=== PATIENT | female | born 1960 | race Hispanic/Latino ===

== ENCOUNTER 2019-03-31 09:02 | Emergency (ER) | payer OTHER ==
[~2019-03-31] VITALS: Ht 162.6 cm; Wt 100.9 kg
--- OUTSIDE RECORDS SUMMARY | 2019-03-31 09:05 | XMS REPORT ---
Author [facility] Address Unknown Phone Unavailable Care Team Providers Care Mat Linker Name Role Phone Unavailable Unavailable Payers Payer Name Policy Type Policy Number Effective Date Expiration Date Problems This patient has no known problems. Allergies, Adverse Reactions, Alerts Allergy Name Allergy Type Status Severity Reaction(s) Onset Date Inactive Date Treating Clinician Comments No Known Allergies DA Active U 2019-03-06 00:00:00 No Known Allergies DA Active U 2012-06-22 00:00:00 Medications This patient has no known medications. Results Test Description Test Time Test Comments Text Results Atomic Results Result Comments - CTA ABD AORTA IF LWEX RO 2019-03-06 11:41:00 Name: ANASTACIA BAEZ [facility] : 1960 Age/S: 58 / F [address] [facility]: [id number] Loc: [place] [address] Phys: Zoila Bowers MD Acct: [id number] Dis Date: Status: REG ER PHONE #: [phone] Exam Date: 03/06/2019 0956 FAX #: [phone] Reason: intermittent leg pain EXAMS: CPT CODE: [id number] [place] [address] REASON FOR EXAM: intermittent leg pain EXAM ORDER DATE: 03/06/2019 8:55 AM Ordering M.DLamont: Zoila Bowers MD PROCEDURE: - CTA ABD AORTA IF LWEX RO COMPARISON: FINDINGS: Axial images of the abdomen and lower extremities runoff were obtained with IV contrast using CT angiogram protocol. Reconstructed sagittal and coronal images from the axial data were provided. Dose modulation, iterative reconstruction, and/or weight based adjustment of the MA/KV was utilized to reduce the radiation dose to as low as reasonably achievable. Maximum intensity pixel, Volume rendered, Surface shaded rendering, and 3D reconstructed images of the abdominal aorta and lower extremities runoff were provided for interpretation. Intravenous contrast: 100c of Omnipaque 370 The abdominal aorta is unremarkable. The iliac arteries are within normal limits. The renal arteries are within normal limits. The celiac trunk is unremarkable. The hepatic and splenic arteries are unremarkable. The superior mesenteric and inferior mesenteric arteries are within normal limits IMPRESSION: Unremarkable abdominal aorta, iliac arteries, and bilateral lower extremities runoff. 3 vessels runoff in the infrapopliteal region. Patent bilateral dorsalis pedis and plantar arteries at 1141 Reported and signed by: John Moreland M.D. CC: Mateo Cerna MD; Zoila Bowers MD Technologist:Dipak Brito RT(R),(MR),(CT); CTDI: DLP: Trnscb Date/Time: 03/06/2019 (1141) t.SDR.VTL Orig Print D/T: S: 03/06/2019 (5710) PAGE 1 Signed Report B-TYPE NATRIURETIC PEPTIDE 2019-03-06 10:42:00 B-TYPE NATRIURETIC PEPTIDE (test code=BNP) 23.29 pgram/mL 0-100 PROTHROMBIN [id number] 10:09:00* Test Item Value Reference Range Comments PROTHROMBIN TIME PATIENT (test code=PTP) 18.9 seconds 9.0-14.0 INTERNATIONAL NORMAL RATIO (test code=INR) 1.6 0.8-1.2 The therapeutic range for oral anticoagulant therapy formost indications is an international normalized ratio (INR)of between 2.0 and 3.0. The recommended therapeutic INRrange for various clinical situations is listed below: Clinical Situation INR range Pulmonary e mbolism treatment (2.0-3.0)Venous thrombosis treatmentVenous thrombosis prophylaxis (high risk surgery)Prevention of systemic embolism from: Acute myocardial infarction Valvular heart disease Atrial fibrillation Mechanical prosthetic heart valves (2.5-3.5) IS PATIENT ON ANTICOAGULANTS? NTHROMBOPLASTIN TIME [id number] 10:09:00* Test Item Value Reference Range Comments THROMBOPLASTIN TIME PARTIAL (test code=PTT) 42.2 seconds 25.0-36.5 IS PATIENT ON ANTICOAGULANTS? NBASIC METABOLIC [id number] 09:49:00* Test Item Value Reference Range Comments SODIUM (test code=NA) 142 mmol/L 136-145 POTASSIUM (test code=K) 4.5 mmol/L 3.5-5.1 CHLORIDE (test code=CL) 108.0 mmol/L 98-107 CARBON DIOXIDE (test code=CO2) 29.0 mmol/L 21-32 ANION GAP (test code=GAP) 9.5 10-20 GLUCOSE (test code=GLU) 113 mg/dL 74-106 BLOOD UREA NITROGEN (test code=BUN) 13 mg/dL 7-18 GLOMERULAR FILTRATION RATE (test code=GFR) > 60 mL/min >=60 Estimated GFR by using Modified MDRD formula.Chronic kidney disease is defined as either kidney damageor GFR <60 mL/min/1.73 m2 for >3 months. CREATININE (test code=CREAT) 0.60 mg/dL 0.55-1.02 Note change in reference range due to change in reagent. BUN/CREATININE RATIO (test code=BUN/CREA) 23.6 10-20 CALCIUM (test code=CA) 9.3 mg/dL 8.5-10.1 [id number] 09:49:00* Test Item Value Reference Range Comments TROPONIN-I (test code=TROPI) <0.015 ng/mL 0-0.045 BASIC METABOLIC [id number] 09:29:00* Test Item Value Reference Range Comments SODIUM (test code=NA) 142 mmol/L 136-145 POTASSIUM (test code=K) 4.5 mmol/L 3.5-5.1 CHLORIDE (test code=CL) 108.0 mmol/L 98-107 CARBON DIOXIDE (test code=CO2) mmol/L 21-32 ANION GAP (test code=GAP) 10-20 GLUCOSE (test code=GLU) mg/dL 74-106 BLOOD UREA NITROGEN (test code=BUN) mg/dL 7-18 GLOMERULAR FILTRATION RATE (test code=GFR) mL/min >=60 CREATININE (test code=CREAT) mg/dL 0.55-1.02 BUN/CREATININE RATIO (test code=BUN/CREA) 10-20 CALCIUM (test code=CA) mg/dL 8.5-10.1 [id number] 09:29:00* Test Item Value Reference Range Comments TROPONIN-I (test code=TROPI) ng/mL 0-0.045 CBC W/O [id number] 09:22:00* Test Item Value Reference Range Comments WHITE BLOOD CELL (test code=WBC) 9.5 K/mm3 4.5-12.5 RED BLOOD CELL (test code=RBC) 4.67 mill/mm3 3.7-5.2 HEMOGLOBIN (test code=HGB) 14.8 gram/dL 11.5-15.5 HEMATOCRIT (test code=HCT) 43.6 % 36.0-46.0 MEAN CELL VOLUME (test code=MCV) 93.4 fL 80-98 MEAN CELL HGB (test code=MCH) 31.7 picogram 27.0-33.0 MEAN CELL HGB CONCETRATION (test code=MCHC) 33.9 gram/dL 33.0-36.0 RED CELL DISTRIBUTION WIDTH (test code=RDW) 12.5 % 11.6-16.2 PLATELET COUNT (test code=PLT) 232 K/mm3 150-450 MEAN PLATELET VOLUME (test code=MPV) 9.9 fL 6.7-11.0 CBC W/O [id number] 09:16:00* Test Item Value Reference Range Comments WHITE BLOOD CELL (test code=WBC) K/mm3 4.5-12.5 RED BLOOD CELL (test code=RBC) mill/mm3 3.7-5.2 HEMOGLOBIN (test code=HGB) 14.8 gram/dL 11.5-15.5 HEMATOCRIT (test code=HCT) 43.6 % 36.0-46.0 MEAN CELL VOLUME (test code=MCV) fL 80-98 MEAN CELL HGB (test code=MCH) picogram 27.0-33.0 MEAN CELL HGB CONCETRATION (test code=MCHC) gram/dL 33.0-36.0 RED CELL DISTRIBUTION WIDTH (test code=RDW) % 11.6-16.2 PLATELET COUNT (test code=PLT) K/mm3 150-450 MEAN PLATELET VOLUME (test code=MPV) fL 6.7-11.0 - XR CHEST 1 [id number] 08:36:00 FAX: Mateo Carrillo [phone] [place]: St: REG FAX: Karena Schroeder NP Name: ANASTACIA BAEZ [facility] : 1960 Age/S: 58/F [address] [facility] Unit #: [id number] Loc: [place] [address] Phys: Karena Schroeder NP Acct: [id number] Dis Date: Status: REG ER PHONE #: [phone] Exam Date: 03/06/2019 0824 FAX #: [phone] Reason: Shortness of Breath EXAMS: CPT CODE: [id number] XR CHEST 1 V 14858 HISTORY: Shortness of breath. COMPARISON: February 02, 2018. No acute infiltrates, effusion or congestion is noted. The cardiac and mediastinal silhouette are within normal limits. IMPRESSION: No acute infiltrates, effusion or congestion. at 0836 Reported and signed by: Darrell Lynne M.D. CC: Mateo Cerna MD; Karena Schroeder NP Technologist: RT PEDRO(Bo) Trnscrd Date/Time/By: 03/06/2019 (5036) : By: [email or web address] Orig Print D/T: S: 03/06/2019 (4212) PAGE 1 Signed Report - CT CHEST W/O [id number] 08:37:00 Name: ANASTACIA BAEZ [facility] : 1960 Age/S: 58 / F [address] Unit #: [id number] Loc: [place] [address] Phys: Mateo Cerna MD Acct: [id number] Dis Date: Status: REG CLI PHONE #: [phone] Exam Date: 12/22/2018813 FAX #: [phone] Reason: PULMONARY NODULE EXAMS: CPT CODE: [id number] CT CHEST W/O CONTRAST 60963 HISTORY: Solitary pulmonary nodule. COMPARISON: CT scan from October 10, 2016, February 02, 2018 and May 31, 2018. CT chest without contrast: Automated exposure control. The lungs are clear for infiltrates, effusion or congestion. No bronchiectasis, honeycombing or fibrosis or endobronchial lesion. Noncalcified medial left lower lobe apical segment 7.4 mm nodule is stable going back to examination of September 2016 demonstrating slightly greater than two-year stability. No new nodules. Normal caliber unopacified aorta and pulmonary arteries. Thyroid glands are unremarkable. Esophageal wall is not thickened. Cardiac silhouette is normal without pericardial effusion. Visualized upper abdomen is unremarkable. The subcut aneous tissues and the musculature are normal in appearance. No lytic or b lastic lesions are noted within the bony skeleton. DJD. IM PRESSION: Stable 7.4 mm noncalcified left lower lobe apical se gment medial paravertebral location nodule demonstrating over 2 year sta bility and has not changed from October 10, 2016. No new nodules. No acute infiltrates, effusion or congestion. No bronchiectasis, honeycombing or fibrosis. No pathologic adenopathy. at 0837 Repo rted and signed by: Darrell Lynne M.D. CC: Mateo Cerna MD Technologist:Cary Aguilera,RT(R),CT CTDI: DLP: Trnscb Date/Time: 12/22/2018 (0837) t.SDR.TH4 Orig Print D/T: S: 12/22/2018 (0840) PAGE 1 Signed Report
[2019-03-31] MEDS ORDERED: MORPHINE SULFATE INJ 4 MG/ML INJ 1ML IV PRN (09:30)
[2019-03-31] MEDS ORDERED: MORPHINE SULFATE INJ 4 MG/ML INJ 1ML ONE (09:38)
--- NOTE | 2019-03-31 10:12 | NUR ---
Ultrasound called in and ETA is 45 minutes.
--- NOTE | 2019-03-31 11:07 | Diagnostic Imaging Report ---
LEFT FEMUR X-RAY - 4 VIEWS HISTORY: ^[id number] ^[id number] COMPARISON: None available. FINDINGS: Bones: No acute displaced fracture. Osseous alignment is within normal limits. Joints: The joint spaces are well-maintained. Soft tissues: The soft tissues appear unremarkable. IMPRESSION: No acute radiographic abnormality. Signed by: Dr. Zuleyma Diaz M.D. on 03/31/2019 11:04 AM
--- NOTE | 2019-03-31 12:16 | Diagnostic Imaging Report ---
EXAM: Left Lower Extremity Duplex Ultrasound INDICATION: ^[id number] ^[id number] COMPARISON: None TECHNIQUE: Camejo scale, color Doppler and spectral waveform analysis of the left lower extremity deep venous system was performed. FINDINGS: Common Femoral: Fully compressible with normal spontaneous waveforms. Proximal Greater Saphenous: Fully compressible. Femoral: Fully compressible with normal spontaneous waveforms. Normal response to augmentation. Proximal Deep Femoral: Normal spontaneous waveforms. Popliteal: Fully compressible with normal spontaneous waveforms. IMPRESSION: No evidence of deep venous thrombosis above the left calf. Signed by: Dr. Zuleyma Diaz M.D. on 03/31/2019 12:13 PM
[2019-03-31 12:20] VITALS: BP 160/73
== END 2019-03-31 12:30 | disposition home or self-care (01) ==
LOC: FSED 09:02
DX: M79.662 Pain in left lower leg (principal); S86.212A Strain of muscle(s) and tendon(s) of anterior muscle group at lower leg level, left leg, initial encounter
CPT/HCPCS: 73552; 80053; 85025; 85610; 93971; 96374; 99284; J2270

== ENCOUNTER 2019-06-10 10:20 | Emergency (ER) | payer OTHER ==
[~2019-06-10] VITALS: Ht 162.6 cm; Wt 100.7 kg
--- NOTE | 2019-06-10 11:50 | Diagnostic Imaging Report ---
EXAM: Lumbar spine radiographs-3 views INDICATION: Low back pain. COMPARISON: None FINDINGS: BONES: Diffuse osteopenia. Minimal anterolisthesis of L4 and L5 No acute displaced fractures. There is mild age indeterminate loss of vertebral body height at L5. DISCS: The disc spaces are preserved. JOINTS: Mild facet degenerative changes at L4-L5 and L5-S1. SOFT TISSUES: Unremarkable IMPRESSION: Diffuse osteopenia with mild age indeterminate loss of vertebral body height at L5. Suggest correlation with point tenderness. Signed by: Dr. Johnie Huff MD on 06/10/2019 11:46 AM
[2019-06-10] MEDS ORDERED: HYDROCODONE/APAP 5MG-325MG TAB ONE (12:12)
[2019-06-10] MEDS ORDERED: HYDROCODONE/APAP 5MG-325MG TAB PO ONE (12:15)
== END 2019-06-10 12:11 | disposition home or self-care (01) ==
LOC: FSED 10:20
DX: M54.5 Low back pain (principal); M51.36 Other intervertebral disc degeneration, lumbar region; M47.816 Spondylosis without myelopathy or radiculopathy, lumbar region
CPT/HCPCS: 72100; 81003; 99284

== ENCOUNTER 2022-01-24 23:08 | Emergency (ER) | payer BC, OTHER ==
[~2022-01-24] VITALS: Ht 167.6 cm; Wt 85.3 kg
[2022-01-24] MEDS ORDERED: ACETAMINOPHEN 325 MG TAB PO ONE (23:15)
[2022-01-24] MEDS ORDERED: ACETAMINOPHEN 325 MG TAB ONE (23:30)
[2022-01-25] MEDS ORDERED: PENICILLIN G BENZATHINE LA 1.2 MU TBX IM STA (00:16)
== END 2022-01-25 00:54 | disposition home or self-care (01) ==
LOC: ER 23:14
DX: R50.9 Fever, unspecified (principal); J02.0 Streptococcal pharyngitis; R05.9 Cough, unspecified; Z20.822 Contact with and (suspected) exposure to COVID-19; Z86.718 Personal history of other venous thrombosis and embolism
CPT/HCPCS: 71045; 83518; 99283; J0561; U0002

== ENCOUNTER 2023-07-14 06:38 | Emergency (ER) | payer BC, OTHER ==
[~2023-07-14] VITALS: Ht 162.6 cm; Wt 99.3 kg
[2023-07-14] MEDS ORDERED: ONDANSETRON HCL INJ 2MG/ML 2ML 2 MG/ML VIAL IV STA (07:00)
[2023-07-14] MEDS ORDERED: Morphine 4mg INJECTION 4 MG/ML INJ IV STA (07:00)
[2023-07-14] MEDS ORDERED: Morphine 4mg INJECTION 4 MG/ML INJ ONE (07:28)
[2023-07-14] MEDS ORDERED: ONDANSETRON HCL INJ 2MG/ML 2ML 2 MG/ML VIAL ONE (07:28)
[2023-07-14] MEDS ORDERED: KETOROLAC TROMETHAMINE 30 MG/ML VIAL IV STA (08:08)
[2023-07-14] MEDS ORDERED: KETOROLAC TROMETHAMINE 30 MG/ML VIAL ONE (08:30)
[2023-07-14 08:44] VITALS: O2SAT 97
[2023-07-14] MEDS ORDERED: FLOMAX0.4 MG PO (08:50)
[2023-07-14] MEDS ORDERED: ULTRAM 50MG50 MG PO (08:50)
[2023-07-14] MEDS ORDERED: KETOROLAC TROME10 MG PO (08:50)
[2023-07-14] MEDS ORDERED: ONDANSETRON ODT4 MG PO (08:50)
[2023-07-14] MEDS ORDERED: IOPAMIDOL 370 MG/ML 100 ML INFUS..BTL INJ ONE (13:05)
== END 2023-07-14 09:02 | disposition home or self-care (01) ==
LOC: FSED 06:54
DX: R10.32 Left lower quadrant pain (principal); N20.0 Calculus of kidney; E11.65 Type 2 diabetes mellitus with hyperglycemia; R11.2 Nausea with vomiting, unspecified; I10 Essential (primary) hypertension; E78.00 Pure hypercholesterolemia, unspecified; Z86.718 Personal history of other venous thrombosis and embolism
CPT/HCPCS: 74177; 80048; 80076; 81003; 85025; 93005; 96374; 96375; 99284; J1885; J2270; J2405; Q9967

== ENCOUNTER 2024-12-25 17:20 | Emergency (ER) | payer BC, OTHER ==
[~2024-12-25 17:20] MED LIST: CYCLOBENZAPRINE5 MG PO; FLOMAX0.4 MG PO; KETOROLAC TROME10 MG PO; ONDANSETRON ODT4 MG PO; ULTRAM 50MG50 MG PO
[2024-12-25 17:25] VITALS: PULSE 93; RESP 18; TEMP 97.9
[2024-12-25] MEDS ORDERED: CRESTOR40 MG (17:32)
[2024-12-25] MEDS ORDERED: METFORMIN HCL500 M1 PO (17:32)
[2024-12-25] MEDS ORDERED: CYMBALTA30 MG (17:32)
[2024-12-25] MEDS ORDERED: LOSARTAN POTAS100 MG PO (17:32)
[2024-12-25] MEDS ORDERED: WARFARIN SODIUM5 MG PO (17:32)
[2024-12-25] MEDS ORDERED: KETOROLAC TROMETHAMINE 30 MG/ML VIAL ONE (17:44)
[2024-12-25] MEDS ORDERED: ONDANSETRON HCL INJ 2MG/ML 2ML 2 MG/ML VIAL ONE (17:44)
[2024-12-25] MEDS: ONDANSETRON HCL INJ 2MG/ML 2ML 2 MG/ML VIAL IV ONE (17:45)
[2024-12-25] MEDS: KETOROLAC TROMETHAMINE 30 MG/ML VIAL IV ONE (17:45)
[2024-12-25] MEDS: LACTATED RINGER'S 1,000 ML INJ ONE (17:46)
[2024-12-25] MEDS ORDERED: IOPAMIDOL 370 MG/ML 100 ML INFUS..BTL INJ ONE (18:37)
[2024-12-25] MEDS ORDERED: ULTRAM 50MG50 MG PO (18:57)
[2024-12-25] MEDS ORDERED: TYLENOL325 MG PO (18:57)
[2024-12-25] MEDS ORDERED: COLACE100 M1 PO (19:01)
[2024-12-25 19:14] VITALS: BP 123/63; PULSE 81; RESP 20; O2SAT 98
== END 2024-12-25 19:15 | disposition home or self-care (01) ==
LOC: FSED 17:39
DX: R10.30 Lower abdominal pain, unspecified (principal); K80.20 Calculus of gallbladder without cholecystitis without obstruction; K44.9 Diaphragmatic hernia without obstruction or gangrene; I10 Essential (primary) hypertension; E11.9 Type 2 diabetes mellitus without complications; E78.5 Hyperlipidemia, unspecified; E78.00 Pure hypercholesterolemia, unspecified; Z86.718 Personal history of other venous thrombosis and embolism
CPT/HCPCS: 74177; 80053; 81003; 81025; 85025; 85610; 99284; J1885; J2405; J7121; Q9967